=== PATIENT | female | born 1970 | race Caucasian/White ===

== ENCOUNTER 2017-03-29 15:07 | Inpatient (IN) | payer OTHER, BC ==
[~2017-03-29] VITALS: Ht 172.7 cm; Wt 43.5 kg
--- NOTE | ~2017-03-29 | P ---
[facility] [place] [address] PROCEDURE REPORT Name: MAHENDRA KUNZ Room #: 418-P [facility] IN M.R.#: [id number] Admission: 03/29/17 Attend Phys: Melissa Velasquez Discharge: 04/01/17 Date of : 70 Report #: [id number] THIS REPORT FOR: //name// CC: Vincent Pan MD DATE OF SERVICE: 03/31/[address] Vincent Gomez and Dr. Daniele Pan. PROCEDURE: Esophagoscopy. INDICATION FOR PROCEDURE: This patient has had intermittent dysphagia to water, but not solids. She has had a history of an esophageal atresia and has had a colonic interposition to ameliorate that problem. I think that she had a subtotal gastrectomy after that and she sees Dr. Daniele Pan for intermittent upper esophageal dilatations because of dysphagia. The patient does not complain of any solid food dysphagia. She simply had an episode of water aspiration, it sounds like about 3 weeks ago and has been able to eat and drink without difficulty, both solids and liquid since that time. EGD is being performed to see if she actually has any narrowing of the remaining upper esophagus that will require or benefit from balloon dilatation. Informed consent for this procedure was obtained prior to the administration of any medication. The risks of the procedure which include bleeding, perforation, infection, complications of sedation and the possibility I could miss something have been explained to the patient and she has indicated her consent by signing. Propofol was slowly titrated before and during this procedure for patient comfort by the anesthesia service. The Fujinon upper videoscope was introduced through the upper esophageal sphincter and advanced under direct visualization to the esophagocolonic anastomosis and down into the colon. The colon is filled with food and I can visualize about half of the lumen, but the rest of it is covered by food. The anastomosis of the colon and esophagus appears intact and is very widely patent. The remaining esophageal mucosa appears normal. The upper esophageal sphincter that I think is remaining appears normal and is not stenotic at all at this time. I do not think that based on these findings, the patient needs esophageal balloon dilatation. Instead, if she continues to have complaints of dysphagia, it may be because of the retained food in her colon and perhaps a prokinetic like erythromycin might help to alleviate some of the symptoms. I would consider a speech swallow evaluation with attention to liquid [address] [address] PROCEDURE REPORT Name: ZEMAHENDRA Room #: 418-P [facility] IN M.R.#: [id number] Admission: 03/29/17 Attend Phys: Melissa Velasquez Discharge: 04/01/17 Date of : 70 Report #: [id number] swallowing. Thank you very much once again for allowing me to participate in her care, Dr. Gomez. <ELECTRONICALLY SIGNED> By: Ghada Harrison DO 04/01/17 1451 1204 2144 Ghada Harrison DO /nt
--- NOTE | ~2017-03-29 | H ---
[facility] [place] [place] [address] HISTORY AND PHYSICAL Name: MAHENDRA KUNZ Room #: 418-P ADM IN M.R.#: [id number] Admission: 03/29/17 Attend Phys: Melissa Velasquez Discharge: Date of : 70 Report #: [id number] THIS REPORT FOR: //name// CC: Jaron Gomez DATE OF SERVICE: 03/29/2017 CHIEF COMPLAINT: Chest pain. HISTORY OF PRESENT ILLNESS: The patient is a 47-year-old female with a known chronic history of esophageal dysfunction and chronic chest pain related to this who was admitted for evaluation. Recently, she has had trouble with swallowing and more pain. She feels weak and is concerned for dehydration. PAST MEDICAL HISTORY: Esophageal dysmotility issue with prior surgery. FAMILY HISTORY: Unknown. SOCIAL HISTORY: No chronic alcohol or tobacco use. ALLERGIES: PENICILLIN. MEDICATIONS: Phenergan, Flexeril, hydrocodone, Elavil, MiraLax, Carafate, Protonix, multivitamin. REVIEW OF SYSTEMS: Denies headache, shortness of breath, nausea, vomiting, diarrhea, constipation, dysuria, syncope. OBJECTIVE: VITAL SIGNS: Temperature 36.8, pulse 85, respirations 18, blood pressure 108/72 and O2 sat 99% on room air. GENERAL: She is awake and alert, in no distress. LUNGS: Clear. HEART: Regular. ABDOMEN: Soft, normoactive bowel sounds. EXTREMITIES: No edema. LABORATORY DATA: Hemoglobin is 11.6, potassium 3.3. ASSESSMENT: 1. Esophageal dysmotility. 2. Chronic chest pain related to the above. 3. Hypokalemia. 4. Chronic protein-calorie malnutrition, albumin 3.1. [facility] [address] [place] [address] HISTORY AND PHYSICAL Name: [facility] Room #: 418-P [facility] IN M.R.#: [id number] Admission: 03/29/17 Attend Phys: Melissa Velasquez Discharge: Date of : 70 Report #: [id number] PLAN: She received IV fluid resuscitation and potassium replacement, the GI service has been consulted. <ELECTRONICALLY SIGNED> By: Crow Rangel MD 03/30/17 1420 1008 1049 Crow Rangel MD /nt
[~2017-03-29 15:07] MED LIST: AMBEREN PO; AMITRIPTYLINE H10 M1 PO; AMITRIPTYLINE H75 M1 PO; ATIVAN1 MG; AZITHROMYCIN 2250 MG PO; CARAFATE 1 GM TA1 GM PO; CENTRUM SILVER1 EAC1 PO; CIPRO250 MG PO; ELAVIL PO; FLEXERIL PO; HYDROCODON-ACE1 EAC4; K-DUR 20 MEQ T20 MEQ; LORAZEPAM 0.50.5 MG; MEGA TAURINE1000 MG PO; MIRALAX17 GM PO; MIRALAX255 GM; NORCO 10-325 T1 EACH PO; NORCO 7.5-3251 EACH PO; ONE DAILY COMP1 EAC1 PO; OXYCODONE HCL5 M1 PO; PERCOCET 5-3251 EACH PO; PHENERGAN 25 MG25 M1 PO; PROMETHAZINE HC25 M1 PO; PROTONIX40 M1 PO; PURE TAURINE500 MG PO; VICODIN 5-5001 EACH PO; ZANTAC 150MG T150 M1 PO
[2017-03-29 16:45] VITALS: BP 120/79
[2017-03-29 19:38] LABS: ABSOLUTE NEUTROPHILS 2.2 thou/uL (1.4-8.2); BASOPHILS 0.4 % (0.0-2.0); EOSINOPHILS 2.6 % (0.0-3.0); HEMATOCRIT 33.9 % (37.0-47.0); HEMOGLOBIN 11.6 gm/dL (12.0-15.0); LYMPHOCYTES 43.2 % (24.0-44.0); MCH 34.3 pg (26.0-34.0); MCHC 34.2 g/dL (28.0-37.0); MCV 100.3 fL (80.0-100.0); MONOCYTES 7.8 % (1.0-8.0); PLATELET COUNT 297 thou/uL (150-400); RBC 3.38 mil/uL (4.20-5.00); RDW 17.1 % (10.5-14.5); WBC 4.9 thou/uL (4.0-11.0)
[2017-03-29 19:41] LABS: MANUAL DIFF NO
[2017-03-29 19:58] LABS: ALBUMIN 3.1 g/dL (3.4-5.0); CALCIUM 7.6 mg/dL (8.5-10.1); CREATININE 0.6 mg/dL (0.6-1.0); POTASSIUM 3.3 mmol/L (3.5-5.1); TOTAL BILIRUBIN 0.4 mg/dL (<0.1-1.0)
[2017-03-29 20:00] VITALS: BP 117/80
[2017-03-30 04:30] VITALS: BP 111/68
[2017-03-30 07:07] VITALS: BP 108/72
[2017-03-30 15:59] VITALS: BP 114/77
[2017-03-30 19:10] VITALS: BP 117/77
[2017-03-31 06:15] VITALS: BP 100/63
[2017-03-31 06:38] LABS: CALCIUM 7.7 mg/dL (8.5-10.1); CREATININE 0.4 mg/dL (0.6-1.0); POTASSIUM 3.7 mmol/L (3.5-5.1)
[2017-03-31 07:16] VITALS: BP 98/63
[2017-03-31 15:44] VITALS: BP 104/59
[2017-03-31 21:00] VITALS: BP 110/67
[2017-04-01 05:30] VITALS: BP 95/62
[2017-04-01 07:12] VITALS: BP 96/64
[2017-04-01] MEDS ORDERED: ERYPED 200 MG/200 MG PO (09:52)
[2017-04-01] MEDS ORDERED: NORCO 10-325 T1 EACH PO (09:52)
[2017-04-01] MEDS ORDERED: SENNA PO (09:53)
[2017-04-01] MEDS ORDERED: LACTULOSE10 GM/153 PO (09:53)
[2017-04-01 14:02] VITALS: BP 96/64
[2017-04-01 14:37] VITALS: BP 96/64
== END 2017-04-01 14:40 | disposition home or self-care (01) | DRG 392 ==
LOC: 4E 15:07
PROVIDERS: Internal Medicine; Internal Medicine Geriatric Medicine
PROC: 0DJ08ZZ Inspection of Upper Intestinal Tract, Via Natural or Artificial Opening Endoscopic (ICD-10-PCS; principal; 2017-03-31)
DX: K22.4 Dyskinesia of esophagus (principal); Z68.1 Body mass index [BMI] 19.9 or less, adult; E46 Unspecified protein-calorie malnutrition; K59.03 Drug induced constipation; E87.6 Hypokalemia; G89.4 Chronic pain syndrome; Z90.49 Acquired absence of other specified parts of digestive tract; Z88.0 Allergy status to penicillin
CPT/HCPCS: 10783; 27001; 62110; 62900; 70005

== ENCOUNTER 2017-08-09 13:43 | Emergency (ER) | payer OTHER, BC ==
[~2017-08-09] VITALS: Ht 172.7 cm; Wt 50.4 kg
--- NOTE | ~2017-08-09 | HC ---
[facility] [address] [place] [address] CONSULTATION Name: MAHENDRA KUNZ Room #: DEP Dutch#: [id number] Admission: 08/09/17 Attend Phys: Discharge: 08/09/17 Date of : 70 Report #: [id number] THIS REPORT FOR: //name// CC: Vincent Schulte DATE OF SERVICE: 08/09/2017 HISTORY OF PRESENT ILLNESS: The patient is a 47-year-old female who was at the dentist earlier today having dental work done when a drill bit came off in her mouth and she swallowed it. The patient has no complaints. Her last meal was at 7:30 this morning. She denies any chest pain, shortness of breath, abdominal pain, nausea or vomiting. She has a history of esophageal atresia and had a colonic interposition graft done. She has had multiple surgeries over the years. PAST MEDICAL HISTORY: Esophageal atresia, previous interposition graft, several revisions, previous history of ulcers, partial colectomy, previous appendectomy, cholecystectomy, iron deficiency anemia, previous renal stone. MEDICATIONS ON ADMISSION: Erythromycin, lactulose, Senokot, multivitamin, Phenergan p.r.n., amitriptyline. ALLERGIES: PENICILLIN. SOCIAL HISTORY: She denies any tobacco or alcohol use. REVIEW OF SYSTEMS: As per HPI. PHYSICAL EXAMINATION: VITAL SIGNS: The patient is afebrile, vital signs are stable. GENERAL: She is alert and oriented x 3, in no acute distress. HEENT: Sclerae nonicteric. Oropharynx clear. NECK: Supple without lymphadenopathy. CARDIOVASCULAR: Regular rate and rhythm. LUNGS: Clear to auscultation bilaterally. ABDOMEN: Soft. She is nontender, nondistended, normoactive bowel sounds. EXTREMITIES: No cyanosis, clubbing or edema. I reviewed the chest x-ray and KUB with radiologist. There appears to be metal drill bit in the colonic interposition graft. [facility] [address] [place] [address] CONSULTATION Name: MAHENDRA KUNZ [place] Room #: [facility]#: [id number] Admission: 08/09/17 Attend Phys: Discharge: 08/09/17 Date of : 70 Report #: [id number] PLAN: Proceed with upper endoscopy for possible removal. By: 1734 [id number] Cm Aggarwal MD /nt
--- NOTE | ~2017-08-09 | P ---
[facility] [address] [place] [address] PROCEDURE REPORT Name: MAHENDRA KUNZ Room #: DEP Dutch#: [id number] Admission: 08/09/17 Attend Phys: Discharge: 08/09/17 Date of : 70 Report #: [id number] THIS REPORT FOR: //name// CC: Vincent Schulte DATE OF SERVICE: 08/09/2017 PROCEDURE PERFORMED: Upper endoscopy. HISTORY OF PRESENT ILLNESS: The patient is a 47-year-old female who is having dental work earlier done today, drill bit fell into her mouth and she swallowed it. She has had a history of esophageal atresia with a colonic interposition graft done many years ago and several revisions. Chest x-ray shows metal bit and what looks like thick colonic interposition graft. Plan is for EGD. DESCRIPTION OF PROCEDURE: The risks and benefits of the procedure were explained to the patient, those risks including but not limited to bleeding, perforation and the risk of sedation. She understood these risks and gave informed consent. Sedation was given using propofol per anesthesia. Of note, the patient was a very difficult IV access. Eventually IV was obtained and propofol was given. However, during the procedure, the patient was moving and we lost access again for the last time. I was able to view most areas as I would describe below; however, the time was limited. PROCEDURE IN DETAIL: Using a standard Applied Identityinon upper endoscope, the scope was placed in the patient's mouth and advanced under direct vision into the upper esophagus, which was somewhat dilated and there is appearance of old food. No evidence of metal drill bit in this area. The anastomosis was noted to be a colonic interposition. This was patent. I was able to advance the scope through the colonic interposition. There was some old food in areas and I was able to remove this food. No metal drill bit verónica was noted. I then was able to see what appears to be a Cayden-en-Y type of anastomosis. I was able to advance the scope down the efferent and the afferent limb slightly and again no metal object was noted. At this point, the patient began having a lot of coughing as the propofol was wearing off and her IV was no longer working. I did not see the metal foreign object in this area. Therefore, the scope was then withdrawn and the procedure terminated. The patient tolerated the procedure well. IMPRESSION: Surgical changes as described above. No metal object was seen on upper endoscopy today. RECOMMENDATIONS: We will discharge the patient to home. She is not having any symptoms at this time. The plan will be to proceed with outpatient KUB tomorrow to verify that foreign object is passing. [address] [address] PROCEDURE REPORT Name: MAHENDRA KUNZ JOLANTA Room #: DEP ATA Judd#: [id number] Admission: 08/09/17 Attend Phys: Discharge: 08/09/17 Date of : 70 Report #: [id number] Thank you for allowing me to participate in her care. <ELECTRONICALLY SIGNED> By: Cm Aggarwal MD 08/13/17 1510 1737 0408 Cm Aggarwal MD /nt
[~2017-08-09 13:43] MED LIST changes: +ERYPED 200 MG/200 MG PO; +LACTULOSE10 GM/153 PO; +SENNA PO
[2017-08-09] MEDS ORDERED: PHENERGAN 25 MG25 M1 PO (15:14)
[2017-08-09] MEDS ORDERED: AMITRIPTYLINE H75 M1 PO (15:15)
[2017-08-09] MEDS ORDERED: PERCOCET 5-3251 EACH PO (18:00)
[2017-08-09 18:09] VITALS: BP 121/66
== END 2017-08-09 18:26 | disposition home or self-care (01) ==
LOC: ER 13:43
DX: T18.8XXA Foreign body in other parts of alimentary tract, initial encounter (principal); X58.XXXA Exposure to other specified factors, initial encounter; Y93.89 Activity, other specified; Y92.89 Other specified places as the place of occurrence of the external cause; Y99.8 Other external cause status; Z98.890 Other specified postprocedural states; Z87.19 Personal history of other diseases of the digestive system; Z88.0 Allergy status to penicillin
CPT/HCPCS: 62110; 62900

== ENCOUNTER → 2017-08-10 | Outpatient (CLI) | payer OTHER, BC | LOC: RAD 12:58 | DX: T18.8XXA Foreign body in other parts of alimentary tract, initial encounter (principal); X58.XXXA Exposure to other specified factors, initial encounter; Y93.89 Activity, other specified; Y92.89 Other specified places as the place of occurrence of the external cause; Y99.8 Other external cause status ==

== ENCOUNTER → 2017-08-13 | Outpatient (CLI) | payer OTHER, BC | LOC: RAD 15:33 | DX: T18.8XXA Foreign body in other parts of alimentary tract, initial encounter (principal); X58.XXXA Exposure to other specified factors, initial encounter; Y93.89 Activity, other specified; Y92.89 Other specified places as the place of occurrence of the external cause; Y99.8 Other external cause status ==

== ENCOUNTER → 2017-08-16 | Outpatient (CLI) | payer OTHER, BC | LOC: CAT 14:49 | DX: R07.9 Chest pain, unspecified (principal); N20.0 Calculus of kidney; G89.29 Other chronic pain; R10.84 Generalized abdominal pain ==

== ENCOUNTER 2017-09-06 16:16 | Inpatient (IN) | payer OTHER, BC ==
[~2017-09-06] VITALS: Ht 152.4 cm; Wt 49.0 kg
--- NOTE | ~2017-09-06 | H ---
[facility] [place] [address] HISTORY AND PHYSICAL Name: MAHENDRA KUNZ Room #: 434-P ADM IN M.R.#: [id number] Admission: 09/06/17 Attend Phys: Melissa Velasquez Discharge: Date of : 70 Report #: [id number] THIS REPORT FOR: //name// CC: Jaron Gomez DATE OF SERVICE: 09/06/2017 CHIEF COMPLAINT: Weakness and abdominal pain. HISTORY OF PRESENT ILLNESS: The patient is a 47-year-old female who was admitted from the office for treatment of abdominal pain and weakness. She has a longstanding history of esophageal dysfunction related to a dysmotility syndrome and remote prior surgery and has repeated episodes of chest pain and oropharyngeal dysphagia. This has led in the last few days to her eating and drinking very little and she felt globally weak. There were concerns of dehydration. PAST MEDICAL HISTORY: Esophageal dysmotility with prior surgery. FAMILY HISTORY: Unknown. SOCIAL HISTORY: No known chronic alcohol or tobacco use. ALLERGIES: PENICILLIN. MEDICATIONS: Phenergan, Flexeril, hydrocodone, Elavil, MiraLax, Carafate, Protonix, multivitamin. REVIEW OF SYSTEMS: She denies headache, fever, chills, productive cough, vomiting, dysuria, myalgias, arthralgias, syncope or fall. OBJECTIVE: VITAL SIGNS: Temperature 36.8, pulse 73, respirations 16, blood pressure 98/55. GENERAL: She is awake and alert, lying in bed, in no distress. HEAD AND NECK: Unremarkable. LUNGS: Clear. HEART: Regular. ABDOMEN: Soft, normoactive bowel sounds. EXTREMITIES: No edema. LABORATORY DATA: Reviewed and chest x-ray. ASSESSMENT: 1. Chronic esophageal dysmotility. 2. Chest pain due to the above, chronic. 3. Mild dehydration. [facility] [address] [place] [address] HISTORY AND PHYSICAL Name: MAHENDRA KUNZ JOLANTA Room #: 434-P [facility] IN .R.#: [id number] Admission: 09/06/17 Attend Phys: Melissa Velasquez Discharge: Date of : 70 Report #: [id number] PLAN: She will continue on IV fluids and home medications with supportive measures. Follow up lab tomorrow and if stable, then anticipate early discharge home. <ELECTRONICALLY SIGNED> By: Crow Rangel MD 09/08/17 1130 0939 0956 Crow Rangel MD /nt
--- NOTE | ~2017-09-06 | D ---
[facility] [place] [place] [address] DISCHARGE SUMMARY Name: MAHENDRA KUNZ Room #: 434-P [facility] IN M.R.#: [id number] Admission: 09/06/17 Attend Phys: Melissa Velasquez Discharge: 09/08/17 Date of : 70 Report #: [id number] THIS REPORT FOR: //name// CC: Jaron Gomez DATE OF SERVICE: 09/08/2017 FINAL DIAGNOSES: 1. Dehydration. 2. Chronic esophageal related chest pain. 3. Esophageal dysmotility syndrome. HOSPITAL COURSE: The patient was admitted for treatment of dehydration. She has a chronic esophageal dysmotility and pain-related syndrome related to old remote surgery, I believe for esophageal atresia. She was treated with supportive measures with IV fluids and usual medications. Overnight, she was improved. Hemoglobin was noted to be chronically around 9 with no evidence of active bleeding. PHYSICAL EXAMINATION: On the day of discharge: GENERAL: She was awake and alert. VITAL SIGNS: Stable. LUNGS: Clear. HEART: Regular. ABDOMEN: Soft, normoactive bowel sounds. EXTREMITIES: No edema. DISPOSITION: Will be discharged to home. DIET: As tolerated. ACTIVITY: As tolerated. FOLLOWUP: With Dr. Gomez in 1 week. DISCHARGE MEDICATIONS: She will continue current medications with Percocet as needed #10. <ELECTRONICALLY SIGNED> By: Crow Rangel MD 09/09/17 1032 1202 1236 MD charles Villar
[2017-09-06 17:00] VITALS: BP 104/53
[2017-09-06 19:19] VITALS: BP 119/74
[2017-09-06 19:37] LABS: ABSOLUTE NEUTROPHILS 3.5 thou/uL (1.4-8.2); BASOPHILS 0.7 % (0.0-2.0); HEMATOCRIT 31.4 % (37.0-47.0); HEMOGLOBIN 9.9 gm/dL (12.0-15.0); LYMPHOCYTES 29.4 % (24.0-44.0); MCH 28.1 pg (26.0-34.0); MCHC 31.6 g/dL (28.0-37.0); MCV 88.8 fL (80.0-100.0); MONOCYTES 11.5 % (1.0-8.0); PLATELET COUNT 469 thou/uL (150-400); POLYS 54.4 % (36.0-66.0); RBC 3.53 mil/uL (4.20-5.00); RDW 17.4 % (10.5-14.5); WBC 6.5 thou/uL (4.0-11.0)
[2017-09-06 19:38] LABS: MANUAL DIFF NO
[2017-09-06 19:49] LABS: CALCIUM 8.2 mg/dL (8.5-10.1); CREATININE 0.7 mg/dL (0.6-1.0); POTASSIUM 4.3 mmol/L (3.5-5.1)
[2017-09-07 04:14] VITALS: BP 98/55
[2017-09-07 08:00] VITALS: BP 104/60
[2017-09-07 16:00] VITALS: BP 110/64
[2017-09-07] MEDS ORDERED: FLEXERIL PO (19:28)
[2017-09-07 19:32] VITALS: BP 109/59
[2017-09-08 03:39] VITALS: BP 101/51
[2017-09-08 06:38] LABS: HEMATOCRIT 27.5 % (37.0-47.0); HEMOGLOBIN 8.8 gm/dL (12.0-15.0)
[2017-09-08 06:45] LABS: CREATININE 0.6 mg/dL (0.6-1.0); POTASSIUM 3.8 mmol/L (3.5-5.1)
[2017-09-08 07:10] VITALS: BP 94/60
[2017-09-08] MEDS ORDERED: PERCOCET 5-3251 EACH PO (12:00)
[2017-09-08 12:07] VITALS: BP 94/60
== END 2017-09-08 12:59 | disposition home or self-care (01) | DRG 392 ==
LOC: 4S 16:16 → ENTRNSPT 09-08 12:49 → EDTRNSPTSTS 09-08 12:55 → 4S 09-08 12:59
PROVIDERS: Internal Medicine; Internal Medicine Geriatric Medicine
DX: K22.4 Dyskinesia of esophagus (principal); E86.0 Dehydration; R07.89 Other chest pain; Z88.0 Allergy status to penicillin; Z90.89 Acquired absence of other organs; Z90.49 Acquired absence of other specified parts of digestive tract
CPT/HCPCS: 10102

== ENCOUNTER → 2017-11-17 | Outpatient (CLI) | payer OTHER, BC ==
[~2017-11-17] VITALS: Ht 172.7 cm; Wt 50.8 kg
[~2017-11-17] MED LIST changes: +CONSTULOSE10 GM/15 M PO; +CONSTULOSE10 GM/152 PO; +LACTULOSE20 GM/30 M PO; +LEVAQUIN 500 M500 M2 PO; +NEXIUM40 MG PO; +PERCOCET PO
--- NOTE | ~2017-11-17 | P ---
[facility] [place] [address] PROCEDURE REPORT Name: MAHENDRA KUNZ Room #: REG AGUSTIN Judd#: [id number] Admission: 11/17/17 Attend Phys: Cm Borden Discharge: Date of : 70 Report #: [id number] THIS REPORT FOR: //name// CC: RADHA Gomez DATE OF SERVICE: 11/17/2017 PROCEDURE PERFORMED: Upper endoscopy with balloon dilation. HISTORY OF PRESENT ILLNESS: The patient is a 47-year-old female with a history of dysphagia. She was born with esophageal atresia and has undergone multiple surgeries including a colonic interposition graft. She has had multiple dilations in the past by Dr. Daniele Pan. Plan is for upper endoscopy with dilation. PROCEDURE: The risks and benefits of the procedure were explained to the patient, those risks including, but not limited to bleeding, perforation, and the risk of sedation. She understood these risks and gave informed consent. Sedation was given using propofol per anesthesia. Next, using a standard FireHostinon upper endoscope, the scope was placed in the patient's mouth and advanced under direct vision through the proximal esophagus into the area where the colonic interposition anastomosis was noted. There was a mild resistance with the scope, but it did pass without much difficulty. The mucosa of the colonic interposition was normal. Again, there appears to be a Cayden-en-Y type of anastomosis. The scope was able to be advanced to the efferent and afferent limb. The scope was then slowly brought back up to the area of the anastomosis and a balloon dilation was then performed using a 15, 16-1/2, and 18 mm TTS balloon. The balloon was inflated to a maximum of [address] for one minute. The balloon was then withdrawn and there was no evidence of mucosal tear after dilation. At this point, the scope was then withdrawn and the procedure terminated. The patient tolerated the procedure well. IMPRESSION: Anastomotic stricture in proximal esophagus at colonic interposition graft, status post balloon dilation as described above. RECOMMENDATIONS: Observe the patient post-dilation and repeat on a p.r.n. basis. Thank you for allowing me to participate in her care. <ELECTRONICALLY SIGNED> By: Cm Aggarwal MD 11/20/17 0808 0954 1136 Cm Aggarwal MD /nt
== END | disposition home or self-care (01) ==
LOC: GI 11-15 08:46
DX: K22.2 Esophageal obstruction (principal); D64.9 Anemia, unspecified; K21.9 Gastro-esophageal reflux disease without esophagitis; Z90.49 Acquired absence of other specified parts of digestive tract; Z98.890 Other specified postprocedural states
CPT/HCPCS: 62110; 62900

== ENCOUNTER 2017-12-13 17:27 | Inpatient (IN) | payer OTHER, BC ==
[~2017-12-13] VITALS: Ht 172.7 cm; Wt 48.5 kg
--- NOTE | ~2017-12-13 | D ---
[facility] [place] [address] DISCHARGE SUMMARY Name: MAHENDRA KUNZ Room #: 418-P [facility] IN M.R.#: [id number] Admission: 12/13/17 Attend Phys: Melissa Velasquez Discharge: 12/15/17 Date of : 70 Report #: [id number] THIS REPORT FOR: //name// CC: Jaron Gomez DATE OF SERVICE: 12/15/2017 FINAL DIAGNOSIS: Abdominal pain. HOSPITAL COURSE: The patient was admitted with esophageal discomfort and upper abdominal pain related to her longstanding history of esophageal stricture due to previous esophageal atresia and multiple surgeries. She had a dilatation just about 3 weeks ago. She was able to eat and swallow without difficulty. She was mildly dehydrated and received liter or two of fluid. The following day her lab work was normal. PHYSICAL EXAMINATION: GENERAL: On the day of discharge, she was awake and alert. VITAL SIGNS: Stable vital signs. LUNGS: Clear. HEART: Regular. ABDOMEN: Soft, normoactive bowel sounds. EXTREMITIES: No edema. DISPOSITION: To be discharged to home with diet and activity as tolerated, resume all home medications with the exception of stopping hydrocodone and using oxycodone for pain. Follow up with Dr. Gomez in 1 week. <ELECTRONICALLY SIGNED> By: Crow Rangel MD 12/16/17 1110 1248 43 Crow Rangel MD /nt
--- NOTE | ~2017-12-13 | H ---
[facility] [place] [address] HISTORY AND PHYSICAL Name: MAHENDRA KUNZ Room #: 418-P ADM IN M.R.#: [id number] Admission: 12/13/17 Attend Phys: Melissa Velasquez Discharge: Date of : 70 Report #: [id number] THIS REPORT FOR: //name// CC: Jaron Gomez DATE OF SERVICE: 12/13/2017 CHIEF COMPLAINT: Chest pain and weakness. HISTORY OF PRESENT ILLNESS: The patient is a 47-year-old female well known to our service, who was admitted from the office with weakness. She has a long-standing history of esophageal dysmotility and previous multiple surgeries, I believe due to atresia. She has had chronic pain and difficulty swallowing for a number of years. She has had repeated scopes and medical treatment to try to control her symptoms. Recently, she has been describing symptoms of difficulty eating due to pain and discomfort. She has felt weak and somewhat dehydrated. She was admitted for medical treatment. PAST MEDICAL HISTORY: Esophageal dysmotility with previous surgeries related to stricture. FAMILY HISTORY: Unknown. SOCIAL HISTORY: Denies chronic alcohol or tobacco use. ALLERGIES: PENICILLIN. MEDICATIONS: Phenergan, Flexeril, hydrocodone, Elavil, MiraLax, Carafate, Protonix, multivitamin. REVIEW OF SYSTEMS: She denies headache, shortness of breath, nausea, vomiting, diarrhea, constipation, dysuria, syncope. OBJECTIVE: VITAL SIGNS: Temperature 36.6, pulse 80, respirations 16, blood pressure 93/51, O2 sat 98% on room air. GENERAL: She is awake and alert, in no distress. LUNGS: Clear. HEART: Regular. ABDOMEN: Soft, normoactive bowel sounds. EXTREMITIES: No edema. LABORATORY DATA: CBC is reviewed, has chronic anemia. BUN was 31. Albumin 3.3. ASSESSMENT: [facility] [address] [place] [address] HISTORY AND PHYSICAL Name: MAHENDRA KUNZ Room #: 418-P [facility] IN [facility].#: [id number] Admission: 12/13/17 Attend Phys: Melissa Velasquez Discharge: Date of : 70 Report #: [id number] 1. Chronic abdominal pain. 2. Chronic esophageal dysmotility. 3. Mild prerenal azotemia. 4. Anemia of chronic disease. 5. Mild protein-calorie malnutrition. PLAN: She is receiving IV fluids for now and repeat her chemistry tomorrow. Once that stabilizes and she is tolerating regular meals, we will anticipate early discharge home unless new symptoms arise. <ELECTRONICALLY SIGNED> By: Crow Rangel MD 12/14/17 1350 0914 0929 Crow Rangel MD /nt
[~2017-12-13 17:27] MED LIST changes: -CONSTULOSE10 GM/15 M PO; -CONSTULOSE10 GM/152 PO; -LACTULOSE20 GM/30 M PO; -LEVAQUIN 500 M500 M2 PO; -NEXIUM40 MG PO; -PERCOCET PO
[2017-12-13] MEDS ORDERED: NEXIUM40 MG PO (17:55)
[2017-12-13] MEDS ORDERED: PERCOCET PO (17:55)
[2017-12-13 19:03] LABS: ABSOLUTE NEUTROPHILS 2.1 thou/uL (1.4-8.2); BASOPHILS 1.2 % (0.0-2.0); EOSINOPHILS 2.6 % (0.0-3.0); HEMOGLOBIN 10.3 gm/dL (12.0-15.0); LYMPHOCYTES 32.4 % (24.0-44.0); MCHC 33.2 g/dL (28.0-37.0); MCV 93.5 fL (80.0-100.0); MONOCYTES 11.2 % (1.0-8.0); PLATELET COUNT 437 thou/uL (150-400); POLYS 52.6 % (36.0-66.0); RBC 3.31 mil/uL (4.20-5.00); RDW 18.2 % (10.5-14.5); WBC 3.9 thou/uL (4.0-11.0)
[2017-12-13 19:19] LABS: ALBUMIN 3.3 g/dL (3.4-5.0); CALCIUM 8.7 mg/dL (8.5-10.1); CREATININE 0.6 mg/dL (0.6-1.0); TOTAL BILIRUBIN 0.1 mg/dL (<0.1-1.0); TOTAL PROTEIN 6.7 g/dL (6.4-8.2)
[2017-12-13 19:29] VITALS: BP 119/47
[2017-12-14 04:03] VITALS: BP 93/4
[2017-12-14 08:28] VITALS: BP 93/51
[2017-12-14 16:42] VITALS: BP 86/59
[2017-12-14 19:36] VITALS: BP 107/65
[2017-12-15 04:02] VITALS: BP 92/58
[2017-12-15 07:15] VITALS: BP 98/60
[2017-12-15 07:51] LABS: HEMATOCRIT 29.8 % (37.0-47.0); HEMOGLOBIN 9.8 gm/dL (12.0-15.0); MCH 31.4 pg (26.0-34.0); MCHC 32.9 g/dL (28.0-37.0); MCV 95.7 fL (80.0-100.0); RBC 3.11 mil/uL (4.20-5.00); RDW 17.8 % (10.5-14.5); WBC 2.8 thou/uL (4.0-11.0)
[2017-12-15 08:00] LABS: ALBUMIN 2.8 g/dL (3.4-5.0); CALCIUM 7.9 mg/dL (8.5-10.1); CREATININE 0.5 mg/dL (0.6-1.0); POTASSIUM 4.1 mmol/L (3.5-5.1); TOTAL BILIRUBIN 0.3 mg/dL (<0.1-1.0); TOTAL PROTEIN 5.9 g/dL (6.4-8.2)
[2017-12-15] MEDS ORDERED: PERCOCET PO (12:44)
[2017-12-15 12:49] VITALS: BP 98/60
[2018-01-21] MEDS ORDERED: AMITRIPTYLINE H75 M1 PO (10:33)
[2018-01-31] MEDS ORDERED: NORCO 10-325 T1 EACH PO (15:48)
== END 2017-12-15 14:17 | disposition home or self-care (01) | DRG 392 ==
LOC: 4E 17:27 → ENTRNSPT 12-15 14:01 → EDTRNSPTSTS 12-15 14:05 → 4E 12-15 14:17
PROVIDERS: Internal Medicine; Internal Medicine Geriatric Medicine
PROC: 05H933Z Insertion of Infusion Device into Right Brachial Vein, Percutaneous Approach (ICD-10-PCS; principal; 2017-12-13)
DX: K22.4 Dyskinesia of esophagus (principal); E44.1 Mild protein-calorie malnutrition; E86.0 Dehydration; D63.8 Anemia in other chronic diseases classified elsewhere; R79.89 Other specified abnormal findings of blood chemistry; Z79.899 Other long term (current) drug therapy; Z28.21 Immunization not carried out because of patient refusal; Z88.0 Allergy status to penicillin
CPT/HCPCS: 10783; 27001

== ENCOUNTER 2018-01-10 16:17 | Inpatient (IN) | payer OTHER, BC ==
[~2018-01-10] VITALS: Ht 172.7 cm; Wt 47.5 kg
--- NOTE | ~2018-01-10 | D ---
[facility] [place] [address] DISCHARGE SUMMARY Name: MAHENDRA KUNZ Room #: 429-P [facility] IN M.R.#: [id number] Admission: 01/10/18 Attend Phys: Melissa Velasquez Discharge: 01/18/18 Date of : 70 Report #: [id number] THIS REPORT FOR: //name// CC: Jaron Gomez FINAL DIAGNOSES: 1. Gastric outlet obstruction. 2. Delayed gastric emptying. 3. Constipation due to slow transit. 4. Protein-calorie malnutrition. 5. Aspiration pneumonia. HOSPITAL COURSE: The patient was admitted with shortness of breath and chest pain. Studies revealed signs of aspiration pneumonia as she had regurgitated at home and delayed gastric emptying. She has a long history of esophageal atresia with reconstructive surgery with a gastric pull-up and I believe a colonic graft to esophagus. This appeared to be slowly functioning with evidence of retained food and liquid material within the chest area. She was seen by Dr. Kessler in the GI service. Ultimately, she underwent surgical placement of a J-tube for distal feeding. The plan from GI is to perform an EGD as an outpatient once her pneumonia has cleared for dilatation. Elavil was discontinued due to its anticholinergic side effects. She did require laxatives to treat colonic constipation from slow transit. PHYSICAL EXAMINATION ON THE DAY OF DISCHARGE: GENERAL: She is resting comfortably in bed. VITAL SIGNS: Stable. Heart rate around 100, which is baseline. LUNGS: Clear. HEART: Tachy, regular rhythm. ABDOMEN: Soft, normoactive bowel sounds with J-tube in place . EXTREMITIES: No edema. DISPOSITION: She will be discharged to home with just liquid diet for now. Follow up with Dr. Aggarwal in a week for EGD. Follow up with Dr. Gomez in a week. She will have nocturnal feedings of Isosource 1.5 or Boost at 90 mL an hour overnight for 12 hours. DISCHARGE MEDICATIONS: Flexeril as needed, lactulose 20 grams daily, Percocet 5 mg q.4 hours p.r.n., Protonix, Phenergan as needed, and Carafate 1 g b.i.d. <ELECTRONICALLY SIGNED> By: Crow Rangel MD 01/25/18 0948 0930 1114 Crow Rangel MD /nt
--- NOTE | ~2018-01-10 | O ---
[facility] [place] [address] OPERATIVE REPORT Name: MAHENDRA KUNZ Room #: 429-P [facility] [place] M.R.#: [id number] Admission: 01/10/18 Attend Phys: Melissa Velasquez Discharge: 01/18/18 Date of : 70 Report #: [id number] THIS REPORT FOR: //name// CC: Jaron Gomez DATE OF SERVICE: 01/14/2018 PREOPERATIVE DIAGNOSES: History of esophageal atresia and colonic interposition and now with stricture and aspiration pneumonia, malnutrition, need for feeding tube. POSTOPERATIVE DIAGNOSES: History of esophageal atresia and colonic interposition and now with stricture and aspiration pneumonia, malnutrition, need for feeding tube. PROCEDURES PERFORMED: Laparoscopic placement of jejunostomy feeding tube #12 Swedish. COMPLICATIONS: None. SURGEON: Ceferino Kessler M.D. ESTIMATED BLOOD LOSS: 5 mL. PROCEDURE NOTE: With the patient under general anesthesia, abdomen was prepped and draped in sterile fashion. NG tube was placed by Anesthesia and the replaced esophagus was suctioned. Unfortunately, we did get quite a bit of air and about 100 mL of clear liquids out. No food particles. The NG was then removed. Abdomen was prepped and draped in sterile fashion. Timeout was performed. The patient has a long midline scar. There is a previous jejunostomy site. The right lower quadrant was chosen. This is below the umbilicus and slightly right of the midline. Cutdown was performed. A 2 cm incision was made. The anterior rectus sheath was identified, opened and 0 Vicryl suture placed on the fascia. Muscle was spread. The posterior sheath was then grabbed and peritoneum was opened up. Again, 0 Vicryl suture placed on the posterior fascia. An origin balloon trocar was then placed directly into the abdominal cavity. Balloon was inflated keeping the trocar sealed. Insufflation was then performed. Laparoscopic evaluation showed multiple adhesions in the upper abdomen. The liver can be visualized and then there are multiple sections of small bowel stuck up there. The descending colon was visualized and gets to a point in the left upper quadrant and then, it becomes hard to follow where it goes. The previous jejunostomy site is identified. I decided to go ahead and put the new tube just distal to this. A T-fastener was used as from the kit. A 5 mm trocar was placed in the left lower abdomen. This allowed the manipulation of the bowel and the T-fasteners were placed in a triangular manner. Ordinarily, a molly shaped 4 fasteners were placed, but [facility] [address] [place] [address] OPERATIVE REPORT Name: MAHENDRA KUNZ JOLANTA Room #: 429-P [facility] [place] M.R.#: [id number] Admission: 01/10/18 Attend Phys: Melissa Velasquez Discharge: 01/18/18 Date of : 70 Report #: [id number] because the bowel was already up against the wall, the 3 corners were then used. This then allowed the bowel to come up against the wall. A low under 1 cm size opening was then made. A needle was then placed through the wound into the bowel. The needle was insufflated with air. I could see the air initially blow up the jejunum. There was also some air in the mesentery posteriorly. The needle was pulled back. This insufflation then did inflate the bowel up proximal and also distal. The air did not stay very well. J wire was then placed through the needle. There was resistance to this. I did try several times placing the wire through. Last time when I looked at it, I could see the wire coming out the back wall. No spillage. At this point, I redirected the needle. I went into a different opening slightly more distal where the bowel was a little more slanted. This was placed in the lumen and again inflated. At this time, the wire went down the distal limb and can be seen in the distal limb. Dilator was then placed over the wire. The dilator was then removed. The Peel-Apart sheath was left in place. The J-tube was then placed through the Peel-Apart sheath. I can see if it go down distally. It is down about 18 inches distally. The Peel-Apart sheath was peeled apart leaving the tube in place. The T-fastener was then pulled up against the wall. CO2 was released until the abdomen would not be so stretched up. The T-fastener was then pulled up and then tightened. Then, a suture and T-fastener were then trimmed. The balloon part of the J-tube is external. I do not like using the balloon anyway fear of obstructing the lumen of the small bowel. The buttress portion was then slid down just above the skin level. I could not reach the skin level because of the T-fasteners. The 0 silk was used to tie this buttress around the tube. The buttress was then sewn to the skin at 3 different sites. A 4 x 4 and OpSite were used for dressing this area. A fluoroscopic injection of the tube was performed. I can see the contrast within the small bowel. The trocars were then removed. The posterior fascia was closed with 0 PDS [id number]. The anterior fascia was also closed with 0 PDS [id number] x 2. Skin was irrigated. Skin at the trocar site was closed with 5-0 PDS. Steri-Strip, Band-Aids applied. The patient tolerated procedure well. <ELECTRONICALLY SIGNED> By: Ceferino Kessler MD 01/21/18 1426 1119 1156 Ceferino Kesselr MD /nt
--- NOTE | ~2018-01-10 | H ---
[facility] [place] [address] HISTORY AND PHYSICAL Name: MAHENDRA KUNZ Room #: 429-P ADM IN M.R.#: [id number] Admission: 01/10/18 Attend Phys: Melissa Velasquez Discharge: Date of : 70 Report #: [id number] THIS REPORT FOR: //name// CC: Jaron Gomez DATE OF SERVICE: 01/10/2018 CHIEF COMPLAINT: Cough and congestion with nausea. HISTORY OF PRESENT ILLNESS: The patient is a 47-year-old female, admitted from the office with cough, congestion for a number of days. She said last week, about 4 or 5 days ago, she had nausea and vomiting episode. She is concerned that, maybe, she aspirated some retained food. She has had a nonproductive cough for several days and some episode of wheezing. Yesterday, she was seen in the office and directed for admission. Overnight, she is breathing better, but still is on oxygen. She has had some nausea and feels like food is sticking in her GI tract. PAST MEDICAL HISTORY: She has a chronic esophageal dysmotility and atresia, for which she had surgery multiple times in the past and has a stomach pull up into the chest for functioning esophagus. She has had repeated episodes of admission for nausea, vomiting or chest pain. PAST SURGICAL HISTORY: As above. FAMILY HISTORY: Noncontributory. SOCIAL HISTORY: She lives at home. Denies chronic alcohol or tobacco use. ALLERGIES: PENICILLIN. MEDICATIONS: Phenergan, Percocet, Flexeril, Carafate, Elavil. REVIEW OF SYSTEMS: She denies headache, diarrhea, constipation, dysuria, myalgias, arthralgia, syncope or fall. OBJECTIVE: VITAL SIGNS: Temperature 38.3, pulse 135, respirations 20, blood pressure 128/69. GENERAL: She is awake and alert, in no distress. HEAD AND NECK: Unremarkable. LUNGS: Clear. HEART: Tachycardic, regular. No murmur. ABDOMEN: Soft, normoactive bowel sounds. EXTREMITIES: No edema. NEUROLOGIC: Motor strength 4/5 throughout. [facility] [address] [place] [address] HISTORY AND PHYSICAL Name: ZEMAHENDRA STOVER Room #: 429-P [facility] IN M.R.#: [id number] Admission: 01/10/18 Attend Phys: Melissa Velasquez Discharge: Date of : 70 Report #: [id number] ASSESSMENT: 1. Aspiration pneumonitis. 2. Esophageal dysmotility. 3. 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 4. Chronic nausea and chest pain. PLAN: Empiric antibiotics and cultures for now for consideration of aspiration pneumonia. I will ask GI Service to see her as well. <ELECTRONICALLY SIGNED> By: Crow Rangel MD 01/11/18 1521 0957 1018 Crow Rangel MD /adriana
--- NOTE | ~2018-01-10 | EKG ---
[place] [address] [facility] [employer] [place] [address] ELECTROCARDIOGRAM REPORT Name: MAHENDRA KUNZ Room #: 429-P ADM IN M.R.#: [id number] Admission: 01/10/18 Attend Phys: Melissa Velasquez Discharge: Date of : 70 Report #: [id number] THIS REPORT FOR: //name// [facility] Test Date: 2018-01-11 Test Time: 10:32:05 Pat Name: MAHENDRA KUNZ Department: Room: 429 P Gender: F Can Slider: Katey MARTINEZ : 1970 Requested By: Crow Rangel Order Number: [id number] MD: Pal Haas Measurements Intervals [place] Rate: 121 P: 67 MN: 166 QRS: 38 QRSD: 69 T: QT: 367 QTc: 521 Interpretive Statements Sinus tachycardia Consider right atrial enlargement Borderline repolarization abnormality Prolonged QT interval Compared to ECG 04/13/2016 15:14:14 Prolonged QT interval now present Heart rate has increased nonspecific change in the ST and T-wave segmentsc Electronically Signed On 01-12-2018 7:51:20 MANAGER [employer] COMPLIANCE by Pal Haas [email or web address] <ELECTRONICALLY SIGNED> By: Pal Haas MD, [facility] 01/12/18 0751 1032 1032 Pal Haas MD, [facility] /EPI
--- NOTE | ~2018-01-10 | HC ---
[facility] [place] [address] CONSULTATION Name: MAHENDRA KUNZ Room #: 429-P [facility] IN M.R.#: [id number] Admission: 01/10/18 Attend Phys: Melissa Velasquez Discharge: 01/18/18 Date of : 70 Report #: [id number] THIS REPORT FOR: //name// CC: Jaron Gomez DATE OF SERVICE: 01/12/2018 REASON FOR CONSULTATION: Consideration for J-tube placement for feeding. HISTORY OF PRESENT ILLNESS: The patient is a 47-year-old who is known to me. I have seen her in the office in the past. The patient came in because of pneumonia and felt to have aspiration pneumonia. The patient had esophageal atresia at , had colonic interposition at [facility] by Dr. Morales. She has had to undergo several revisions. Last revision was 2000. She went into [facility] and some type of Cayden-en-Y was performed. She has had strictures requiring dilatation by Dr. Page who now no longer is here. Dr. Aggarwal has been dilating the strictures. When she came in, her CT scan showed a possible right-sided pneumonia and her esophagus is markedly stretched. It seems to taper at the GE junction area. I do not really see much of a normalized stomach. Colon does have stool in it on the left side. The patient is very thin. She has lost about 8-10 pounds in the last few months. PHYSICAL EXAMINATION: The patient has multiple midline scars. There is a J-tube site present in the left upper abdomen. No mass, guarding, rigidity. No ascites. IMPRESSION AND PLAN: The patient is a 47-year-old with history of esophageal atresia, colonic interposition, revisions and Cayden-en-Y revision in 2000 at [facility]. I agree that she now has stricture and has too much food material in the esophagus and I think that she may be aspirating. She has lost weight, malnourished. I agree that the patient would benefit from having a J-tube feeding placed. I believe laparoscopic approach can be performed. It is hard to know how much scar she will have and whether that procedure can be carried out. This was discussed with the patient and she understands. We will set her up for surgery in the next couple of days. I do not know if we are able to get her old surgical reports. We will try from Dr. Gomez's office. <ELECTRONICALLY SIGNED> By: Ceferino Kessler MD 01/21/18 1426 1124 1142 Ceferino Kessler MD /nt
[~2018-01-10 16:17] MED LIST changes: +NEXIUM40 MG PO; +PERCOCET PO
[2018-01-10 16:45] VITALS: BP 133/83
[2018-01-10 19:11] LABS: HEMATOCRIT 32.8 % (37.0-47.0); HEMOGLOBIN 10.9 gm/dL (12.0-15.0); MCH 31.8 pg (26.0-34.0); MCHC 33.3 g/dL (28.0-37.0); MCV 95.4 fL (80.0-100.0); PLATELET COUNT 493 thou/uL (150-400); RBC 3.44 mil/uL (4.20-5.00); RDW 17.1 % (10.5-14.5); WBC 11.2 thou/uL (4.0-11.0)
[2018-01-10 19:24] LABS: ALBUMIN 2.8 g/dL (3.4-5.0); CALCIUM 8.2 mg/dL (8.5-10.1); CREATININE 0.7 mg/dL (0.6-1.0); TOTAL BILIRUBIN 0.4 mg/dL (<0.1-1.0); TOTAL PROTEIN 7.1 g/dL (6.4-8.2)
[2018-01-10 19:41] LABS: ABSOLUTE NEUTROPHILS 8.8 thou/uL (1.4-8.2); MYELOCYTES 1 %
[2018-01-10 19:42] LABS: ANISOCYTOSIS 1+
[2018-01-10 19:50] VITALS: BP 111/71
[2018-01-11] VITALS: BP 105/89
[2018-01-11 03:05] VITALS: BP 111/71
[2018-01-11 07:48] VITALS: BP 120/69
[2018-01-11 15:23] VITALS: BP 93/61
[2018-01-11 19:55] VITALS: BP 105/60
[2018-01-12 03:55] VITALS: BP 111/64
[2018-01-12 06:37] LABS: URINE BILIRUBIN NEGATIVE (Negative); URINE BLOOD NEGATIVE (Negative); URINE CLARITY CLEAR; URINE COLOR YELLOW; URINE GLUCOSE-RANDOM* NEGATIVE (Negative); URINE KETONES NEGATIVE (Negative); URINE LEUKOCYTES-REFLEX NEGATIVE (Negative); URINE PROTEIN (DIPSTICK) NEGATIVE (Negative); URINE SPECIFIC GRAVITY <= 1.005 (1.005-1.035); URINE UROBILINOGEN 0.2 E.U./dl (0.2-1.0)
[2018-01-12 06:38] LABS: URINE NITRITE-REFLEX POSITIVE (Negative)
[2018-01-12 07:39] VITALS: BP 107/65
[2018-01-12 08:27] LABS: CASTS None Seen /LPF (None Seen); CRYSTALS None Seen /LPF (None Seen); SQUAMOUS 4-10 Moderate /LPF (0-3)
[2018-01-12 08:28] LABS: URINE RBC None Seen /HPF (0-2); URINE WBC-REFLEX 6-15 Few /HPF (0-5)
[2018-01-12 16:30] VITALS: BP 90/56
[2018-01-12 19:42] VITALS: BP 91/63
[2018-01-13 07:50] VITALS: BP 104/68
[2018-01-13 08:13] LABS: HEMOGLOBIN 10.2 gm/dL (12.0-15.0); MCH 31.8 pg (26.0-34.0); MCHC 32.8 g/dL (28.0-37.0); MCV 97.2 fL (80.0-100.0); RBC 3.19 mil/uL (4.20-5.00); RDW 17.6 % (10.5-14.5); WBC 8.3 thou/uL (4.0-11.0)
[2018-01-13 08:21] LABS: ALBUMIN 2.4 g/dL (3.4-5.0); CALCIUM 8.3 mg/dL (8.5-10.1); CREATININE 0.5 mg/dL (0.6-1.0); POTASSIUM 3.6 mmol/L (3.5-5.1); TOTAL BILIRUBIN 0.4 mg/dL (<0.1-1.0); TOTAL PROTEIN 6.6 g/dL (6.4-8.2)
[2018-01-13 15:35] VITALS: BP 99/59
[2018-01-13 20:05] VITALS: BP 104/63
[2018-01-14 04:11] VITALS: BP 108/62
[2018-01-14 08:15] VITALS: BP 109/56
[2018-01-14] MEDS ORDERED: LEVAQUIN 500 M500 M2 PO (09:49)
[2018-01-14] MEDS ORDERED: CONSTULOSE10 GM/15 M PO (09:50)
[2018-01-14 13:18] VITALS: BP 117/66
[2018-01-14 20:00] VITALS: BP 100/64
[2018-01-15 04:30] VITALS: BP 90/54
[2018-01-15 07:50] VITALS: BP 100/65; BP 149/96
[2018-01-15 15:10] VITALS: BP 102/63
[2018-01-15 20:02] VITALS: BP 110/66
[2018-01-16] VITALS: BP 121/74
[2018-01-16 04:15] VITALS: BP 103/62
[2018-01-16 08:20] VITALS: BP 97/60
[2018-01-16 19:10] VITALS: BP 112/58
[2018-01-17 03:40] VITALS: BP 95/55
[2018-01-17 07:50] VITALS: BP 98/59
[2018-01-17 19:53] VITALS: BP 114/67
[2018-01-18 02:56] VITALS: BP 112/73
[2018-01-18 03:19] VITALS: BP 104/63
[2018-01-18 07:00] VITALS: BP 93/54
[2018-01-18 13:23] VITALS: BP 93/54
[2018-01-21] MEDS ORDERED: AMITRIPTYLINE H75 M1 PO (10:33)
[2018-01-31] MEDS ORDERED: NORCO 10-325 T1 EACH PO (15:48)
== END 2018-01-18 13:46 | disposition home or self-care (01) | DRG 177 ==
LOC: 4E 16:17 → ENTRNSPT 01-18 13:34 → EDTRNSPTSTS 01-18 13:36 → 4E 01-18 13:46
PROVIDERS: Internal Medicine; Internal Medicine Geriatric Medicine
PROC: 0DHA3UZ Insertion of Feeding Device into Jejunum, Percutaneous Approach (ICD-10-PCS; principal; 2018-01-10)
DX: J69.0 Pneumonitis due to inhalation of food and vomit (principal); Q39.0 Atresia of esophagus without fistula; E43 Unspecified severe protein-calorie malnutrition; N39.0 Urinary tract infection, site not specified; K31.1 Adult hypertrophic pyloric stenosis; E46 Unspecified protein-calorie malnutrition; Z68.1 Body mass index [BMI] 19.9 or less, adult; K30 Functional dyspepsia; K59.00 Constipation, unspecified; K22.4 Dyskinesia of esophagus; R11.0 Nausea; K21.9 Gastro-esophageal reflux disease without esophagitis; T40.605A Adverse effect of unspecified narcotics, initial encounter; K22.2 Esophageal obstruction; Z88.0 Allergy status to penicillin; Z79.899 Other long term (current) drug therapy; Z90.49 Acquired absence of other specified parts of digestive tract
CPT/HCPCS: 10783; 50010; 50101; 50411; 50555; 53307; 53310; 56462; 56525; 59999; 62110; 62900; 70005

== ENCOUNTER 2018-01-25 14:05 | Emergency (ER) | payer OTHER, BC ==
[~2018-01-25] VITALS: Ht 172.7 cm; Wt 48.1 kg
[~2018-01-25 14:05] MED LIST changes: +CONSTULOSE10 GM/15 M PO; +LEVAQUIN 500 M500 M2 PO
[2018-01-25 15:39] LABS: HEMATOCRIT 25.7 % (37.0-47.0); HEMOGLOBIN 8.8 gm/dL (12.0-15.0); MCH 31.7 pg (26.0-34.0); MCHC 34.1 g/dL (28.0-37.0); MCV 93.2 fL (80.0-100.0); PLATELET COUNT 425 thou/uL (150-400); RBC 2.76 mil/uL (4.20-5.00); RDW 16.3 % (10.5-14.5); WBC 5.3 thou/uL (4.0-11.0)
[2018-01-25 15:49] LABS: CALCIUM 8.2 mg/dL (8.5-10.1); CREATININE 0.7 mg/dL (0.6-1.0)
[2018-01-25 15:54] LABS: ALBUMIN 2.6 g/dL (3.4-5.0); TOTAL BILIRUBIN 0.2 mg/dL (<0.1-1.0); TOTAL PROTEIN 6.3 g/dL (6.4-8.2)
[2018-01-25 16:03] LABS: ABSOLUTE NEUTROPHILS 2.9 thou/uL (1.4-8.2)
[2018-01-25 16:04] LABS: ANISOCYTOSIS 1+
[2018-01-25 16:05] LABS: AMP/METHAMP Negative (Negative); BARBITURATES Negative (Negative); BENZODIAZEPINES Negative (Negative); COCAINE Negative (Negative); METHADONE Negative (Negative); OPIATES POSITIVE (Negative); PCP Negative (Negative)
[2018-01-25 17:36] VITALS: BP 121/45
[2018-01-31] MEDS ORDERED: NORCO 10-325 T1 EACH PO (15:48)
== END 2018-01-25 17:38 | disposition home or self-care (01) ==
LOC: ER 14:05
PROVIDERS: Nurse Practitioner Family
DX: S00.03XA Contusion of scalp, initial encounter (principal); R42 Dizziness and giddiness; Z88.0 Allergy status to penicillin; Z90.49 Acquired absence of other specified parts of digestive tract; W18.39XA Other fall on same level, initial encounter; Y93.89 Activity, other specified; Y92.89 Other specified places as the place of occurrence of the external cause; Y99.8 Other external cause status

== ENCOUNTER 2018-02-07 18:58 | Inpatient (IN) | payer OTHER, BC ==
[~2018-02-07] VITALS: Ht 162.6 cm; Wt 47.3 kg
--- NOTE | ~2018-02-07 | P ---
[facility] [place] [address] PROCEDURE REPORT Name: MAHENDRA KUNZ Room #: 227-P [facility] IN M.R.#: [id number] Admission: 02/07/18 Attend Phys: Bob Berkowitz MD Discharge: 02/09/18 Date of : 70 Report #: [id number] THIS REPORT FOR: //name// CC: Jaron Berkowitz DATE OF SERVICE: 02/09/2018 PROCEDURE PERFORMED: Upper endoscopy with balloon dilation of the surgical anastomosis. HISTORY OF PRESENT ILLNESS: The patient is a 47-year-old female with a history of esophageal atresia who has undergone several colonic interposition graft over the years. She has a known stricture as well as dysphagia as well as dysmotility. She also had a J-tube placed recently for continued weight loss. This was surgically placed by Dr. Kessler. She has actually been improving, tolerating the tube feeds quite well and gained some weight. She still takes some nutrition by mouth. Unfortunately, J-tube fell out the day before yesterday and was replaced yesterday in Interventional Radiology. Plan is for repeat upper endoscopy with dilation for dysphagia. DESCRIPTION OF PROCEDURE: The risks and benefits of the procedure were explained to the patient, those risks including but not limited to bleeding, perforation, the risk of sedation. She understood these risks and gave informed consent. Sedation was given using propofol per anesthesia. Next, using a standard IKOR METERINGn upper endoscope, the scope was placed in the patient's mouth and advanced under direct vision through the remaining esophagus through the surgical anastomosis with some mild resistance into the colonic interposition graft. There was food residual in this area, which had been seen before. I was able to pass the scope well into the transition into the ileum, into the jejunum, which was normal. The scope was then brought back up to the surgical anastomosis stricture. I then proceeded with a balloon dilation using a 15, 16.5 and 18 mm balloon holding in place at 18 for 1 minute. The balloon was deflated. There was a small mucosal tear and some mild bleeding, but this spontaneously stopped. This balloon was then removed with the catheter. I was able to advance the scope through the stricture much more easily at this point. Since there was a mucosal tear no further dilations were performed. The scope was then withdrawn and the procedure terminated. The patient tolerated the procedure well. IMPRESSION: 1. Surgical anastomotic stricture, status post balloon dilation as above. 2. Colonic interposition graft. [facility] [address] [place] [address] PROCEDURE REPORT Name: MAHENDRA KUNZ Room #: 227-P [facility] IN M.R.#: [id number] Admission: 02/07/18 Attend Phys: Bob Berkowitz MD Discharge: 02/09/18 Date of : 70 Report #: [id number] Thank you for allowing me to participate in her care. <ELECTRONICALLY SIGNED> By: Cm Aggarwal MD 02/12/18 0854 1130 1325 Cm Aggarwal MD /adriana
--- NOTE | ~2018-02-07 | H ---
[facility] [place] [address] HISTORY AND PHYSICAL Name: MAHENDRA KUNZ Room #: 417-I ADM IN M.R.#: [id number] Admission: 02/07/18 Attend Phys: Bob Berkowitz MD Discharge: Date of : 70 Report #: [id number] THIS REPORT FOR: //name// CC: Jaron Berkowitz DATE OF SERVICE: 02/07/2018 CHIEF COMPLAINT: Abdominal pain. HISTORY OF PRESENT ILLNESS: The patient is a 47-year-old female admitted through the Emergency Room with some abdominal discomfort after a J-tube came out. She had it placed about a month ago due to chronic esophageal issues related to remote esophageal atresia, where she had a surgical resection with reconstruction, using some component of bowel. She has had problems over the years with stricture of the reconstructed esophagus and regurgitation of undigested food. I had seen her in hospitalization from about 4 weeks ago. The plan was for an outpatient EGD with dilatation, but she missed that appointment, but apparently was rescheduled for tomorrow. She said then her J-tube came out sometime yesterday. She contacted Dr. Kessler who recommended ER evaluation. PAST MEDICAL HISTORY: As above. She has had multiple admissions for abdominal pain. PAST SURGICAL HISTORY: As previously noted. SOCIAL HISTORY: No chronic alcohol or tobacco use. ALLERGIES: PENICILLIN. MEDICATIONS: Protonix, Carafate, hydrocodone, Tylenol, Flexeril. REVIEW OF SYSTEMS: She denies headache, chest pain, shortness of breath, abdominal pain, nausea, vomiting, diarrhea, constipation, dysuria, syncope. OBJECTIVE: VITAL SIGNS: Temperature 36.9, pulse 84, respirations 18, blood pressure /67. GENERAL: She is awake and alert, in no distress. LUNGS: Clear. HEART: Regular. ABDOMEN: Soft, normoactive bowel sounds. EXTREMITIES: No edema. NEUROLOGIC: Motor strength 4/5 throughout. ASSESSMENT: [facility] [address] [place] [address] HISTORY AND PHYSICAL Name: MAHENDRA KUNZ [place] Room #: [address] [place] [address] IN .R.#: [id number] Admission: 02/07/18 Attend Phys: Bob Berkowitz MD Discharge: Date of : 70 Report #: [id number] 1. Abdominal pain due to jejunostomy tube displacement. 2. Chronic esophageal dysmotility and stricture. 3. History of esophageal atresia with resection and surgical reconstruction years ago. PLAN: IR has been consulted to replace the J-tube. I will ask GI service to see her and prepare for EGD with dilatation if indicated. <ELECTRONICALLY SIGNED> By: Crow Rangel MD 02/08/18 1537 1007 1028 Crow Rangel MD /nt
--- NOTE | ~2018-02-07 | D ---
[facility] [place] [address] DISCHARGE SUMMARY Name: MAHENDRA KUNZ Room #: 227-P [facility] IN M.R.#: [id number] Admission: 02/07/18 Attend Phys: Bob Berkowitz MD Discharge: 02/09/18 Date of : 70 Report #: [id number] THIS REPORT FOR: //name// CC: Jaron Berkowitz DATE OF SERVICE: 02/09/2018 FINAL DIAGNOSES: 1. Jejunostomy tube malfunction. 2. Esophageal stricture. 3. Chronic abdominal pain. HOSPITAL COURSE: The patient was admitted after a J-tube came out at home. This was replaced by IR. KUB was unremarkable. She was also previously scheduled for esophageal dilatation due to stricture related to an esophageal reconstruction from remote history of esophageal atresia. She has had this performed multiple times over the past. This was performed on the day of discharge by Dr. Aggarwal without incident. Otherwise, she had an uneventful hospital stay. PHYSICAL EXAMINATION: GENERAL: On the day of discharge, she was resting in bed after the procedure: VITAL SIGNS: Temperature is 36.8, pulse 87, respirations 20, blood pressure 105/64, O2 sat 99% on room air. LUNGS: Clear. HEART: Regular. ABDOMEN: Soft, normoactive bowel sounds. J-tube in place. EXTREMITIES: No edema. DISPOSITION: She will be discharged to home with a soft diet, activity as tolerated. She can use her J-tube with tube feeding at night as she had previously. She will continue all same medications including multivitamin daily, Carafate twice a day, Phenergan as needed, Flexeril as needed, Nexium 40 mg daily, hydrocodone 10 mg as needed, lactulose as needed for constipation. She is instructed to stop the amitriptyline. Follow up with Dr. Gomez in a week. <ELECTRONICALLY SIGNED> By: Crow Rangel MD 02/10/18 1000 1221 1227 Crow Rangel MD /nt
[2018-02-07 19:28] VITALS: BP 104/72
[2018-02-07 20:58] LABS: HEMATOCRIT 31.3 % (37.0-47.0); HEMOGLOBIN 10.3 gm/dL (12.0-15.0); MCH 31.5 pg (26.0-34.0); MCHC 33.1 g/dL (28.0-37.0); MCV 95.2 fL (80.0-100.0); RBC 3.29 mil/uL (4.20-5.00); RDW 16.7 % (10.5-14.5); WBC 4.9 thou/uL (4.0-11.0)
[2018-02-07 21:00] VITALS: BP 104/72
[2018-02-07] MEDS ORDERED: CONSTULOSE10 GM/152 PO (21:23)
[2018-02-07 21:36] LABS: CALCIUM 8.9 mg/dL (8.5-10.1); CREATININE 0.5 mg/dL (0.6-1.0); POTASSIUM 4.6 mmol/L (3.5-5.1)
[2018-02-07 21:42] LABS: ALBUMIN 3.3 g/dL (3.4-5.0); TOTAL BILIRUBIN 0.4 mg/dL (<0.1-1.0); TOTAL PROTEIN 7.4 g/dL (6.4-8.2)
[2018-02-07 21:50] VITALS: BP 112/74
[2018-02-08 03:59] VITALS: BP 97/56
[2018-02-08 07:24] VITALS: BP 102/67
[2018-02-08 09:41] LABS: PROTIME 10.7 Seconds (9.3-11.4)
[2018-02-08 11:51] VITALS: BP 102/70
[2018-02-08 15:20] VITALS: BP 115/78
[2018-02-08 20:00] VITALS: BP 98/63
[2018-02-09 07:29] VITALS: BP 105/64
[2018-02-09 12:13] VITALS: BP 126/74
[2018-02-09 12:15] VITALS: BP 105/64
[2018-02-09 12:36] VITALS: BP 105/64
== END 2018-02-09 13:35 | disposition home or self-care (01) | DRG 327 ==
LOC: ER 18:58 → EROBS 20:10 → 4E 20:16 → EROBS 20:18 → 4E 21:58 → SICU 02-08 18:10
PROVIDERS: Emergency Medicine; Internal Medicine; Radiology Vascular & Interventional Radiology
PROC: 0D164ZA Bypass Stomach to Jejunum, Percutaneous Endoscopic Approach (ICD-10-PCS; 2018-02-08)
PROC: 0D20XUZ Change Feeding Device in Upper Intestinal Tract, External Approach (ICD-10-PCS; 2018-02-08)
PROC: 0D758ZZ Dilation of Esophagus, Via Natural or Artificial Opening Endoscopic (ICD-10-PCS; principal; 2018-02-09)
DX: K94.13 Enterostomy malfunction (principal); E44.1 Mild protein-calorie malnutrition; Z68.1 Body mass index [BMI] 19.9 or less, adult; K21.9 Gastro-esophageal reflux disease without esophagitis; Y83.8 Other surgical procedures as the cause of abnormal reaction of the patient, or of later complication, without mention of misadventure at the time of the procedure; Y82.8 Other medical devices associated with adverse incidents; K22.2 Esophageal obstruction; G89.29 Other chronic pain; Z88.0 Allergy status to penicillin; Z90.49 Acquired absence of other specified parts of digestive tract; Z86.010 Personal history of colon polyps
CPT/HCPCS: 10084; 15002; 62110; 62900; 70005

== ENCOUNTER 2018-02-28 14:28 | Inpatient (IN) | payer OTHER, BC ==
[~2018-02-28] VITALS: Ht 172.7 cm; Wt 45.4 kg
--- NOTE | ~2018-02-28 | H ---
[facility] [place] [address] HISTORY AND PHYSICAL Name: MAHENDRA KUNZ Room #: 426-P ADM IN M.R.#: [id number] Admission: 02/28/18 Attend Phys: Melissa Velasquez Discharge: Date of : 70 Report #: [id number] THIS REPORT FOR: //name// CC: Jaron Gomez DATE OF SERVICE: 02/28/2018 CHIEF COMPLAINT: Abdominal pain. HISTORY OF PRESENT ILLNESS: The patient is a 47-year-old female with a history of esophageal atresia and reconstruction with bowel transplant many years ago, was readmitted for abdominal pain. This is a recurring problem. She has had multiple admissions over the last year, and this is about her third admission since the first of this year. She has had two dilatations, CAT scan and replacement surgically of a J-tube, along with replacement via IR after it became out of place. She just continues to experience lower chest and upper epigastric discomfort. Usually this is associated with eating, she feels as though food is sticking in her throat, and she often regurgitates. She has been trying to use overnight tube feeding, but reports that this is causing some gaseous distention. Chronic pain has been an ongoing issue for her for years with no solution. PAST MEDICAL HISTORY: As above. FAMILY HISTORY: Unknown. SOCIAL HISTORY: No known chronic alcohol or tobacco use. ALLERGIES: PENICILLIN. MEDICATIONS: Phenergan, Flexeril, hydrocodone, lactulose, Carafate, Nexium, multivitamin. REVIEW OF SYSTEMS: She denies headache, fever, chills, diarrhea, constipation, dysuria, syncope. She has had a little bit of sinus congestion and drainage. OBJECTIVE: VITAL SIGNS: Per the nursing note. GENERAL: She is awake and alert, lying in bed, in no distress. HEAD AND NECK: Unremarkable. LUNGS: Clear. HEART: Regular. ABDOMEN: Soft, normoactive bowel sounds, with J-tube. EXTREMITIES: No cyanosis, clubbing or edema. ASSESSMENT: [facility] [address] [place] [address] HISTORY AND PHYSICAL Name: MAHENDRA KUNZ [place]NA[place] Room #: 426-P [facility] IN M.R.#: [id number] Admission: 02/28/18 Attend Phys: Melissa Velasquez Discharge: Date of : 70 Report #: [id number] 1. Abdominal pain. 2. Esophageal dysmotility. 3. History of esophageal atresia with remote reconstructive bowel surgery. 4. Recent J-tube placement. PLAN: I will repeat her CT. On previous admission, she has had retained food particles in her reconstructed esophagus and stomach. She has had several scopes with dilatation recently. This may just be a complete dysmotility issue of the upper GI tract of the reconstructed area, and she may need to just go to n.p.o. status or fluids only with nutrition through the J-tube at this point. <ELECTRONICALLY SIGNED> By: Crow Rangel MD 03/01/18 1139 1559 1650 Crow Rangel MD /nt
--- NOTE | ~2018-02-28 | D ---
[facility] [place] [address] DISCHARGE SUMMARY Name: MAHENDRA KUNZ Room #: 426-P [facility] IN M.R.#: [id number] Admission: 02/28/18 Attend Phys: Melissa Velasquez Discharge: 03/02/18 Date of : 70 Report #: [id number] THIS REPORT FOR: //name// CC: Jaron Gomez FINAL DIAGNOSES: 1. Abdominal pain. 2. Chest pain. 3. Delayed gastric transit. HOSPITAL COURSE: The patient was admitted with chest and abdominal pain again related to her gastric pull-up for esophageal atresia, which is a chronic problem. Repeat CT of the chest showed some dilatation of the gastric body in the chest area that is causing some compression with atelectasis in the right lower lobe. Clinically, there were no signs of pneumonia and therefore, no antibiotics were ordered. Incentive spirometry was added. She was treated symptomatically with IV fluid initially with potassium supplementation. Also, there was stool retention and lactulose was ordered with discontinuation of amitriptyline. Tube feeding was started continuously, which she seemed to be tolerating reasonably well. Ultimately I recommended the plan at this point is just oral liquid intake and full nutrition through the J tube. PHYSICAL EXAMINATION: GENERAL: On the day of discharge, she was awake and alert, stable. VITAL SIGNS: Afebrile. LUNGS: Clear. HEART: Regular. ABDOMEN: Soft, normoactive bowel sounds. EXTREMITIES: No edema. DISPOSITION: She is discharged to home, resume Nexium, Flexeril, Phenergan, hydrocodone, multivitamin and lactulose. She is to stop amitriptyline and Carafate. Follow up with Dr. Gomez in 1-2 weeks. Tube feeding 5-6 cans daily with oral liquid intake. <ELECTRONICALLY SIGNED> By: Crow Rangel MD 03/03/18 0952 1234 1327 Crow Rangel MD /nt
[~2018-02-28 14:28] MED LIST changes: +CONSTULOSE10 GM/152 PO
[2018-02-28 19:20] VITALS: BP 122/81
[2018-02-28 20:14] LABS: HEMATOCRIT 28.3 % (37.0-47.0); HEMOGLOBIN 9.8 gm/dL (12.0-15.0); MCH 31.7 pg (26.0-34.0); MCHC 34.8 g/dL (28.0-37.0); RBC 3.1 mil/uL (4.20-5.00); WBC 10.4 thou/uL (4.0-11.0)
[2018-02-28 20:28] LABS: ALBUMIN 2.4 g/dL (3.4-5.0); CALCIUM 8.4 mg/dL (8.5-10.1); CREATININE 0.7 mg/dL (0.6-1.0); TOTAL BILIRUBIN 0.2 mg/dL (<0.1-1.0); TOTAL PROTEIN 7.3 g/dL (6.4-8.2)
[2018-02-28 20:30] LABS: POTASSIUM 2.8 mmol/L (3.5-5.1)
[2018-02-28] MEDS ORDERED: AMITRIPTYLINE H75 M1 PO (21:24)
[2018-03-01 05:28] VITALS: BP 116/65
[2018-03-01 07:49] VITALS: BP 115/63
[2018-03-01 15:59] VITALS: BP 93/57
[2018-03-01 19:34] VITALS: BP 114/61
[2018-03-02 03:41] VITALS: BP 87/54
[2018-03-02 06:06] LABS: CALCIUM 8.4 mg/dL (8.5-10.1); CREATININE 0.5 mg/dL (0.6-1.0); POTASSIUM 4.3 mmol/L (3.5-5.1)
[2018-03-02 07:10] VITALS: BP 102/70
[2018-03-02] MEDS ORDERED: LACTULOSE20 GM/30 M PO (11:42)
[2018-03-02 13:08] VITALS: BP 102/70
== END 2018-03-02 14:53 | disposition home or self-care (01) | DRG 391 ==
LOC: 4E 14:28 → ENTRNSPT 03-02 13:14 → EDTRNSPTSTS 03-02 13:16 → 4E 03-02 14:53
PROVIDERS: Internal Medicine Geriatric Medicine
DX: K22.4 Dyskinesia of esophagus (principal); E43 Unspecified severe protein-calorie malnutrition; Z68.1 Body mass index [BMI] 19.9 or less, adult; Z90.49 Acquired absence of other specified parts of digestive tract; Z79.899 Other long term (current) drug therapy; Z88.0 Allergy status to penicillin
CPT/HCPCS: 10783; 27001

== ENCOUNTER 2018-03-16 07:05 | Emergency (ER) | payer OTHER, BC ==
[~2018-03-16] VITALS: Ht 172.7 cm; Wt 46.3 kg
[~2018-03-16 07:05] MED LIST changes: +LACTULOSE20 GM/30 M PO
[2018-03-16 10:09] VITALS: BP 115/66
== END 2018-03-16 10:09 | disposition home or self-care (01) ==
LOC: ER 07:05
DX: K94.13 Enterostomy malfunction (principal); K21.9 Gastro-esophageal reflux disease without esophagitis; Z90.49 Acquired absence of other specified parts of digestive tract; Z86.2 Personal history of diseases of the blood and blood-forming organs and certain disorders involving the immune mechanism; Z87.442 Personal history of urinary calculi; Z88.0 Allergy status to penicillin

== ENCOUNTER 2018-04-28 09:21 | Emergency (ER) | payer OTHER, BC ==
[~2018-04-28] VITALS: Ht 172.7 cm; Wt 46.3 kg
[2018-04-28 11:10] VITALS: BP 130/83
== END 2018-04-28 11:20 | disposition home or self-care (01) ==
LOC: ER 09:21
DX: Z43.1 Encounter for attention to gastrostomy (principal); K21.9 Gastro-esophageal reflux disease without esophagitis; Z90.49 Acquired absence of other specified parts of digestive tract; Z88.0 Allergy status to penicillin

== ENCOUNTER 2018-11-07 16:18 | Inpatient (IN) | payer OTHER, BC ==
[~2018-11-07] VITALS: Ht 172.7 cm; Wt 41.7 kg
[~2018-11-07 16:18] MED LIST changes: -CIPRO500 MG PO
[2018-11-07 17:23] VITALS: BP 126/76
--- NOTE | 2018-11-07 18:14 | NUR ---
ASSUMED CARE OF PT AT 17:30. DIRECT ADMIT FROM DR. TATE OFFICE. C/O RIGHT FLANK PAIN/BACK PAIN. SOME NAUSEA NOTED. ADMISSION ASSESSMENT COMPLETED AND CHARTED. A&O,X4. PHYSICIAN NOTIFIED OF PT ARRIVAL AND NEW ORDERS FOR PAIN MEDS. WILL CONTINUE TO MONITOR.
[2018-11-07 18:30] LABS: BASOPHILS 0.8 % (0.0-2.0); EOSINOPHILS 0.8 % (0.0-3.0); HEMATOCRIT 30.6 % (37.0-47.0); HEMOGLOBIN 10.4 gm/dL (12.0-15.0); LYMPHOCYTES 20.7 % (24.0-44.0); MCH 32.9 pg (26.0-34.0); MCHC 34.1 g/dL (28.0-37.0); MCV 96.4 fL (80.0-100.0); MONOCYTES 9.1 % (1.0-8.0); PLATELET COUNT 501 thou/uL (150-400); POLYS 68.6 % (36.0-66.0); RBC 3.17 mil/uL (4.20-5.00); RDW 14.1 % (10.5-14.5); WBC 8.8 thou/uL (4.0-11.0)
[2018-11-07 18:43] LABS: ALBUMIN 2.3 g/dL (3.4-5.0); CALCIUM 8.4 mg/dL (8.5-10.1); POTASSIUM 3.3 mmol/L (3.5-5.1); TOTAL BILIRUBIN 0.6 mg/dL (<0.1-1.0); TOTAL PROTEIN 7.3 g/dL (6.4-8.2)
[2018-11-07 19:14] VITALS: BP 116/70
[2018-11-07] MEDS ORDERED: AMITRIPTYLINE H75 M1 PO (21:17)
--- NOTE | 2018-11-08 03:13 | NUR ---
ASSUMED PT CARE 1900. PT ALERT AND ORIENTED. PT IV INSERTED INTO R CHEST BY CLASSER. FLUSHES WELL. ASSESSMENT COMPLETED. VSS. PT REPORTED A PAIN RATING OF 7/10, MEDICATION GIVEN (SEE EMAR), PAIN WELL CONTROLLED WITH MEDICATION. PT CALL LIGHT AND PERSONAL BELONINGS WITHIN REACH. WILL CONTINUE POC UNTIL EOS.
[2018-11-08 05:03] VITALS: BP 138/89
[2018-11-08] MEDS ORDERED: CIPRO500 MG PO (08:21)
[2018-11-08 08:41] VITALS: BP 101/66
[2018-11-08 14:07] VITALS: BP 140/90
[2018-11-08 15:00] VITALS: BP 109/70
--- NOTE | 2018-11-08 16:02 | NUR ---
Assumed pt care at 7am.Pt up adlib in the room and hallways with steady gait. Assessment completed.vss.Pt c/o back pain rated 7/10.Pain med given as ordered with relief.Dr Rangel here early this shift and requested to transfer pt to [facility].But after calling placement dept at [facility],pt was rejected as inpt ans was told to see urologist as outpt.Dr Rangel notified and stated that pt can stay in hospital till am.Later this afternoon,Dr Kessler here, and order noted.Pt will be having nephrostomy tube placement in am by INterventional radiology.Pt now on regular diet.Will continue to monitor.
--- NOTE | 2018-11-08 17:37 | NUR ---
PATIENT ARRIVED ON UNIT AT 1735 PT ALERT XS 4 NO PAIN WILL GET VS AND BLOOD SUGAR. ADMISSIONS TO CHANGE STATUS FROM ER TO 4 EAST.
[2018-11-08 20:00] VITALS: BP 104/66
--- NOTE | 2018-11-08 22:51 | NUR ---
PT IS UP AD FEDERICO. PLEASANT. CHEST PIV CAME OFF, TRIED TO GET ANOTHER LINE X [address] LUNA SAID ITS OKAY TO LEAVE IV OFF.AFEBRILE.TAKING PO OKAY FOR NOW. NPO AFTER MIDNIGHT.PLAN FOR IR PROCEDURE TOMORROW.
[2018-11-09 04:00] VITALS: BP 105/66
--- NOTE | 2018-11-09 04:59 | NUR ---
PT AOX4. ON RA, DENIES SOA. C/O PAIN, PAIN MEDS GIVEN. VSS. AFEBRILE. UP AD FEDERICO. NPO AFTER MIDNIGHT FOR PROCEDURE. NO COMPLAINS PRESENTLY. WILL CONTINUE TO MONITOR.
[2018-11-09 05:38] LABS: CALCIUM 8.1 mg/dL (8.5-10.1); CREATININE 0.8 mg/dL (0.6-1.0); POTASSIUM 3.4 mmol/L (3.5-5.1)
[2018-11-09 05:55] LABS: PROTIME 10.5 Seconds (9.3-11.4)
[2018-11-09 07:10] VITALS: BP 98/58
--- NOTE | 2018-11-09 08:24 | NUR ---
ASSUMED CARE OF PT AT 0700. ASSESSMENT COMPLETED AND CHARTED. A&O,X4. REPORTING COLON SPASMS AND RIGHT FLANK PAIN, PAIN MEDS GIVEN ORDERED. DENIES N/V/D. UA SPECIMEN COLLECTED, CLEAR LIGHT YELLOW URINE NOTED. WILL CONTINUE TO MONITOR.
--- NOTE | 2018-11-09 08:53 | NUR ---
PT LEFT IN STABLE CONDITION FOR IR PROCEDURE. WILL WAIT FOR RETURN.
--- NOTE | 2018-11-09 09:01 | H ---
[facility] [place] [address] HISTORY AND PHYSICAL Name: MAHENDRA KUNZ Room #: 417-I ADM IN M.R.#: [id number] Admission: 11/07/18 Attend Phys: Ceferino Kessler MD Discharge: Date of : 70 Report #: [id number] THIS REPORT FOR: //name// CC: Jaron Gomez DATE OF SERVICE: 11/07/2018 CHIEF COMPLAINT: Abdominal pain. HISTORY OF PRESENT ILLNESS: The patient is a 48-year-old female who was admitted with right-sided hydronephrosis and possibility of a right proximal stone versus mass versus hematoma. She was seen in the office yesterday for routine studies and has had persistent pyuria and urinary infections for quite some time. An outpatient CT stone protocol was ordered. This revealed moderately severe right hydronephrosis with a proximal ureteral obstruction just below the UP junction. It is described as a soft tissue process, not a calculus. The radiologist suggested this could be a blood clot or a possible mass. She was admitted overnight and was placed on fluids. So far, her renal function is normal and has a normal white count. PAST MEDICAL HISTORY: Esophageal atresia. She has had multiple surgeries in the past. She has chronic pain syndrome as a result. She has also had difficulty with nausea and vomiting. She has had multiple hospital admissions for abdominal pain and nausea, vomiting over the years. PAST SURGICAL HISTORY: She has had some esophageal reconstruction. She previously had had a J-tube. FAMILY HISTORY: Noncontributory. SOCIAL HISTORY: She lives at home. No chronic alcohol or tobacco use. ALLERGIES: PENICILLIN. MEDICATIONS: Phenergan, Flexeril, hydrocodone, lactulose, Carafate, Nexium, multivitamin. REVIEW OF SYSTEMS: Denies headache, chest pain, shortness of breath, dysuria, myalgias, syncope or fall. OBJECTIVE: VITAL SIGNS: Temperature 96.3, pulse 73, respirations 18, blood pressure 130/89, O2 sat 99% on room air. GENERAL: She is awake and alert, in no distress. HEAD AND NECK: Unremarkable. LUNGS: Clear. [facility] [address] [place] [address] HISTORY AND PHYSICAL Name: MAHENDRA KUNZ JOLANTA Room #: 417-I ADM IN .R.#: [id number] Admission: 11/07/18 Attend Phys: Ceferino Kessler MD Discharge: Date of : 70 Report #: [id number] HEART: Regular. ABDOMEN: Soft, normoactive bowel sounds. EXTREMITIES: No cyanosis, clubbing, edema. NEUROLOGIC: Cranial nerves intact. Speech is fluent. Motor strength intact. ASSESSMENT: 1. Right hydronephrosis with proximal obstruction. 2. Chronic abdominal pain. 3. History of esophageal atresia over the previous esophageal reconstruction remotely and chronic pain syndrome. 4. Chronic constipation due to narcotic use. PLAN: At this point, she is stabilized with IV fluids and her creatinine is normal. Urology services are not available at [facility]. I will work with the hospital to transfer her to a higher level of care. <ELECTRONICALLY SIGNED> By: Crow Rangel MD 11/09/18 0901 [id number] 1058 Crow Rangel MD /nt
[2018-11-09 09:09] LABS: URINE CLARITY CLEAR; URINE COLOR YELLOW; URINE SPECIFIC GRAVITY 1.005 (1.005-1.035)
[2018-11-09 09:10] LABS: URINE BILIRUBIN NEGATIVE (Negative); URINE BLOOD 1+ (Negative); URINE GLUCOSE-RANDOM* NEGATIVE (Negative); URINE KETONES NEGATIVE (Negative); URINE LEUKOCYTES-REFLEX 1+ (Negative); URINE NITRITE-REFLEX NEGATIVE (Negative); URINE PROTEIN (DIPSTICK) NEGATIVE (Negative); URINE UROBILINOGEN 0.2 E.U./dl (0.2-1.0)
[2018-11-09 09:30] LABS: CASTS None Seen /LPF (None Seen); CRYSTALS None Seen /LPF (None Seen); SQUAMOUS 4-10 Moderate /LPF (0-3)
[2018-11-09 09:31] LABS: URINE WBC-REFLEX 6-15 Few /HPF (0-5)
[2018-11-09 09:32] LABS: BACTERIA-REFLEX 1-9 Few /HPF (None Seen); URINE RBC 0-2 Rare /HPF (0-2)
--- NOTE | 2018-11-09 12:38 | NUR ---
When tube feed able to resume, recommend jevity 1.5 at 90ml/hr x 12 hrs nocturnal which is appropriate substitute for pts usual tf formula.
--- NOTE | 2018-11-09 14:13 | NUR ---
ASSESSMENT-PT HAS MOVED TO ORIENT TO STAY WITH HER OLDER SISTER. PT WALKS ON HER OWN AND DOES HER OWN ADLS. SHE IS ON SERVICE WITH [facility] FOR TUBE FEEDINGS AND SUPPLIES. PT HAS A PUMP AT HOME WELL AND USES ISOSOURCE 1.5. PT HAS 2 NIECES IN THAT AREA TOO. PT WILL PLAN TO FOLLOW-UP WITH UROLOGY ON AN OUTPT BASIS. FOLLOWING TO ASSIST WITH DC PLANNING.
--- NOTE | 2018-11-09 14:24 | NUR ---
[facility] THAT WOULD SERVICE PT IN [place] IS [phone], FAX [phone].
[2018-11-09 16:00] VITALS: BP 97/63
[2018-11-09 19:07] VITALS: BP 116/59
--- NOTE | 2018-11-09 19:14 | NUR ---
END OF SHIFT. NEW NEPHROSTOMY TUBE AND JTUBE PLACED TODAY. NO BLEEDING NOTED. PT C/O RIGHT FLANK PAIN, PAIN MEDS GIVEN ORDERED. NO NAUSEA NOTED. NO OTHER CONCERNS AT THIS TIME.
[2018-11-10 03:55] VITALS: BP 115/68
[2018-11-10 04:08] LABS: CALCIUM 7.9 mg/dL (8.5-10.1); CREATININE 0.7 mg/dL (0.6-1.0)
--- NOTE | 2018-11-10 04:13 | NUR ---
PT A&Ox4. medicated per orders for abdm and back pain with relief verbalized. J tube and DRSG intact, free from drainage. Nephrostomy tube intact draining clear light yellow urine. BS (+). LCTAB. Denies N/V/D. Pt upbeat and cooperative with nursing cares. Will continue to monitor pt.
[2018-11-10 04:18] LABS: POTASSIUM 3.5 mmol/L (3.5-5.1)
[2018-11-10 06:00] LABS: MCH 33.1 pg (26.0-34.0); MCHC 34.4 g/dL (28.0-37.0); MCV 96.2 fL (80.0-100.0); RBC 3.02 mil/uL (4.20-5.00); RDW 14.1 % (10.5-14.5); WBC 7.1 thou/uL (4.0-11.0)
[2018-11-10 08:04] VITALS: BP 125/65
[2018-11-10] MEDS ORDERED: CIPRO500 MG PO (10:26)
--- NOTE | 2018-11-10 10:55 | D ---
[facility] [place] [address] [place] [address] DISCHARGE SUMMARY Name: MAHENDRA KUNZ Room #: 417-I ADM IN M.R.#: [id number] Admission: 11/07/18 Attend Phys: Ceferino Kessler MD Discharge: Date of : 70 Report #: [id number] THIS REPORT FOR: //name// CC: Jaron Kessler FINAL DIAGNOSES: 1. Right-sided hydronephrosis. 2. Jejunostomy tube fell out. PROCEDURES: 1. Right nephrostomy tube placement by IR. 2. J-tube replacement by IR. HOSPITAL COURSE: The patient was admitted with abdominal pain after a CT of the abdomen revealed right hydronephrosis with a proximal ureter obstruction. It did not appear to be a stone, but it was described more as a soft tissue mass, either infection, hematoma or mass. Urology services are not available at this hospital. Dr. Kessler saw her in consultation. I previously discussed transferring her to [facility], but their urologist felt this could be managed as an outpatient. Dr. Kessler ordered for IR to place a right nephrostomy tube and to replace her J-tube. This was performed without incident. Blood cultures were negative. Her white count was normal. She had no elevated fever or elevated temperature and her creatinine was normal. She had normal urinary output of the nephrostomy tube. Urine culture was still pending, but urinalysis was unremarkable. PHYSICAL EXAMINATION: GENERAL: On the day of discharge, she was walking in the halls of the hospital independently. VITAL SIGNS: She had stable vital signs and afebrile. LUNGS: Clear. HEART: Regular. ABDOMEN: Soft, normoactive bowel sounds. EXTREMITIES: No edema. DISPOSITION: She is discharged to her sister's home with home health. Diet and activity as tolerated, bolus tube feeding 5 times a day. Follow up with Dr. Gomez in 1 week and we will make a referral to the Urology service at [facility]. She will also have Cipro 500 mg b.i.d. for 7 days. <ELECTRONICALLY SIGNED> By: Crow Rangel MD 11/10/18 1055 1032 1052 Crow Rangel MD /nt
[2018-11-10 11:18] VITALS: BP 125/65
[2018-11-10 12:04] VITALS: BP 125/65
--- NOTE | 2018-11-10 18:19 | NUR ---
ASSUMED CARE OF PT AT 0700. ASSESSMENT COMPLETED AND CHARTED. A&O,X4. C/O RIGHT FLANK PAIN, PAIN MEDS GIVEN ORDERED. DENIES NAUSEA, SOA, CHEST PAIN. NEPHROSTOMY TUBE IN PLACE, NO BLEEDING OR DRAINAGE NOTED. IR CLAMPED NEPHROSTOMY TUBE ORDERED. J TUBE IN PLACE, NO BLEEDING OR DRAINAGE NOTED. NEW D/C ORDERS. DISCHARGE INFORMATION DISCUSSED WITH PT AND FAMILY AT BEDSIDE. NEW SCRIPTS GIVEN. IV REMOVED, NO BLEEDING. PT BELONGINGS COLLECTED AND GIVEN TO PT. STATES NO QUESTIONS OR CONCERNS. PT REFUSED WHEELCHAIR AND LEFT AMBULATORY AT 15:50.
== END 2018-11-10 16:02 | disposition home or self-care (01) | DRG 693 ==
LOC: 4E 16:18
PROVIDERS: Internal Medicine Geriatric Medicine; Surgery; ADMIT Internal Medicine
PROC: 0T767DZ Dilation of Right Ureter with Intraluminal Device, Via Natural or Artificial Opening (ICD-10-PCS; principal; 2018-11-09)
PROC: BT1D1ZZ Fluoroscopy of Right Kidney, Ureter and Bladder using Low Osmolar Contrast (ICD-10-PCS; principal; 2018-11-09)
PROC: 0D2DXUZ Change Feeding Device in Lower Intestinal Tract, External Approach (ICD-10-PCS; 2018-11-09)
DX: N13.1 Hydronephrosis with ureteral stricture, not elsewhere classified (principal); E43 Unspecified severe protein-calorie malnutrition; Z68.1 Body mass index [BMI] 19.9 or less, adult; G89.4 Chronic pain syndrome; R10.9 Unspecified abdominal pain; K59.09 Other constipation; F11.90 Opioid use, unspecified, uncomplicated; Z90.49 Acquired absence of other specified parts of digestive tract; Z88.0 Allergy status to penicillin; Z23 Encounter for immunization; Z79.899 Other long term (current) drug therapy
CPT/HCPCS: 10783

== ENCOUNTER → 2018-11-07 | Outpatient (CLI) | payer OTHER, BC ==
[~2018-11-07] MED LIST changes: +CIPRO500 MG PO
== END ==
LOC: CAT 14:26
DX: N13.1 Hydronephrosis with ureteral stricture, not elsewhere classified (principal); N20.0 Calculus of kidney; N32.89 Other specified disorders of bladder; J98.4 Other disorders of lung; R19.5 Other fecal abnormalities

== ENCOUNTER → 2018-12-29 | Outpatient (CLI) | payer OTHER, BC ==
[~2018-12-29] MED LIST changes: +CIPRO500 MG PO
== END ==
LOC: CAT 12:42
DX: N13.9 Obstructive and reflux uropathy, unspecified (principal); N20.0 Calculus of kidney; R10.84 Generalized abdominal pain; R19.5 Other fecal abnormalities